=== PATIENT | female | born 1955 | race Caucasian/White ===

== ENCOUNTER 2019-10-24 08:28 | Observation (INO) ==
--- NOTE | 2019-10-24 13:13 | History & Physical Bridge Note ---
Date of Service October 24, 2019 History & Physical Bridge Note I have examined the patient, reviewed the History & Physical and in the interval since the performance of the History & Physical I have noted the following changes of clinical significance: no changes noted
--- NOTE | 2019-10-24 13:13 | Pre Anesthesia Assessment ---
Date of Service October 24, 2019 Pre Sedation Assessment Vital Signs Temp Pulse Resp BP Pulse Ox 10/24/19 09:13 97.7 F 58 L 16 165/68 H 96 Cardiovascular RRR, no murmur, no edema Respiratory normal respiratory effort, lungs clear to auscultation Pre-Sedation Airway Assessment Smoking Status: Never smoker Hx Sleep Apnea: No Short, Thick Neck: No Thyromental Distance: > or= 3.5 Finger Breadths Oral Cavity: + WNL Mallampati Class: III ASA: ASA3 NPO Status Date of Last Intake of Fluids: 10/23/19 Time of Last Intake of Fluids: 19:30 Date of Last Intake of Solid Food: 10/23/19 Time of Last Intake of Solid Foods: 19:30 Procedure Planning Contraindications for Sedation: none Current Medications Reviewed: Yes Notes The planned sedation has been discussed with the patient. Informed Consent was obtained. I have identified the patient, determined the appropriateness of sedation and have assessed the patient immediately prior to the procedure. All medicine(s) and interventions are by my order.
[2019-10-24] MEDS ORDERED: NiCARDipine HCL INJ 2.5 MG/ML 10 ML AMP ONE (13:18)
[2019-10-24] MEDS ORDERED: HEPARIN (PORCINE) 1000 UNIT/ML 10 ML (CATH LAB USE ONLY) ONE (13:18)
[2019-10-24] MEDS ORDERED: MIDAZOLAM HCL 1 MG/ML 2ML VIAL ONE ×2 (13:19→14:32)
[2019-10-24] MEDS ORDERED: fentaNYL citrate 100 MCG/2 ML VIAL ONE ×3 (13:19→17:31)
[2019-10-24] MEDS ORDERED: NITROGLYCERIN/D5W 100MCG/ML 20ML SYR ONE (13:20)
[2019-10-24] MEDS ORDERED: CLOPIDOGREL BISULFATE 300 MG TAB ONE (15:09)
--- NOTE | 2019-10-24 15:25 | Post Anesthesia Assessment ---
Date of Service October 24, 2019 Post Sedation Assessment Vital Signs Temp Pulse Resp BP Pulse Ox 10/24/19 09:13 97.7 F 58 L 16 165/68 H 96 Recovery Score Activity: Moves 4 extremities Respiration: Deep Breath/Cough Circulation: +/-20% PreAnes Value Consciousness: Fully Awake Oxygen Saturation: O2 needed for >90% Discharge Sedation Level of Care: Fast Track Phase II Post Sedation Plan On clinical assessment, the patient appears to have tolerated the sedation without complications. Patient is recovering as anticipated. Patient will continue to be monitored by nursing and may be discharged when sedation discharge criteria are met per below protocol. Upon Completions of procedure up to 15 minutes continue every 5 minute vital signs and the P.A.R. score; then discharge to a Phase I or Fast Track to Phase I I per the following guidelines: * Discharge Patient to appropriate Phase II area if PAR is 8 or greater or return to pre- procedure baseline. The post - procedure orders will be as directed. * If PAR score is less than 8 or not return to pre-procedure baseline then patient will follow Phase I monitoring till PAR is reached for Phase II. The Phase I may be done in procedure room or may call to secure a Phase I area. * If naloxone or flumazenil are used for reversal, hold in Phase I for continued monitoring from when last reversal dose was given for a minimum of 60 minutes or longer pending the nurse and/or physician discretion of patient condition before discharge to Phase II. Please call the Sedation Physician to re-evaluate and complete post-note for discharge to Phase II area. Do NOT discharge from procedure sedation or Phase 1 until post- sedation evaluation note is complete by procedure /sedation MD Sedation Discharge Instructions to be given to the patient at discharge to home.
[2019-10-24] MEDS ORDERED: ACETAMINOPHEN 325 MG TAB PO PRN (15:44)
[2019-10-24] MEDS ORDERED: ONDANSETRON INJ 2 MG/ML 2 ML VIAL IV PRN (15:44)
[2019-10-24] MEDS ORDERED: NITROGLYCERIN SL 0.4 MG/TAB TAB SL PRN (15:44)
--- NOTE | 2019-10-24 15:53 | Cardiac Catheterization ---
[facility] Data: Fitter / Welder Cardiac Status Clinical evaluation leading to the procedure CAD Presenation: Unstable angina Anginal Classification: CCS III Heart Failure: No Cardiogenic Shock within 24 Hours: No Cardiac Arrest within 24 Hours: No Imaging Studies Past 6 Months: Yes Stress Studies Past 6 Months: No Diagnostic Physicians Name: Jakob Keane MD Status: Elective Closure Device Percutaneous Entry Location: Radial Closure Device: Radial Band Recommendations: PCI without planned CABG PCI Indication: Angina despite med therapy and Unstable Angina Lesion Segment Name: mid RCA Culprit Artery: Yes Stenosis Prior to Rx (%): 95 Chronic Total Occlusion: No IVUS: No FFR: No Pre-Procedure PRIYA Flow: 3 Previously Treated Lesion: No Lesion Complexity: Non-High/Non-C Lesion Length (mm): 20 Thrombus Present: No Bifurcation Lesion: No Guidewire Across Lesion: Stenosis Post-Procedure (%): 0 Post-Procedure PRIYA Flow: 3 Devices(s) Deployed: Yes Yes Intraprocedure Events Significant Disection: No Perforation: No Cardiac Cath Procedure Full Procedure Date October 24, 2019 Pre-Procedure Diagnosis Pre-Procedure Diagnosis: Angina AUC Score AUC Score: 7 Post-Procedure Diagnosis Post-Procedure Diagnosis: Severe CAD, Successful PCI and Normal Intracardiac Pressures Procedure(s) Performed Procedure(s) Performed: Coronary Angiography, Left Heart Cath, Drug Eluting Stent, Ultrasound Guided Vascular Access and Aortography Senior Product Designer Jakob Keane MD Layboy Operator(s) Luiz Estimated Blood Loss Estimated Blood Loss: 10 Medication(s) Medication(s): Clopidogrel, Fentanyl, Heparin, Lidocaine 1%, Nicardipine, Nitroglycerin and Versed Summary of Findings Indication: Accelerating angina Access: 6Fr right radial artery under ultrasound guidance Catheters: Miles, JR4 guide, pigtail Findings: LM - 20% ostial stenosis LAD - Medium caliber vessel with proximal to mid luminal irregularities. Distal vessel tapers to apex. Medium caliber 1st diagonal without significant disease. Circumflex - Medium caliber vessel, 20-30% mid segment disease. RCA - Dominant, large caliber, mild diffuse mid segment disease before 95% stenosis at take off of acute marginal. Distal luminal irregularities. LVEDP - 16 Ascending aortography - Normal aortic root size. 2+ aortic regurgitation. -- PCI -- Antithrombotic therapy: Heparin, Clopidogrel Procedure: RCA cannulated with JR4 guide Head Of Human Resources 50 wire passed across lesion into distal vessel Mid RCA lesion predilated with 2.5 compliant balloon Dilated lesion stented with 3.0 x 26 Derian THOMAS Stent post-dilated with 3.5 noncompliant balloon IC vasodilators administered for spasm Post procedure PRIYA 3 flow, stent well expanded with minimal residual stenosis and no apparent cardiac complications. Arterial Closure: TR Band Summary: 1. Severe single vessel coronary artery disease - 95% mid RCA stenosis 2. Normal intracardiac filling pressure 3. Normal ascending aorta/aortic root with mild to moderate aortic regurgitation (2+). 4. Successful PCI of mid RCA with single drug-eluting stent (3.0 x 26 mm Derian; post-dilated with 3.5 NC). Recommendations: To PCU for continued monitoring Loaded with Clopidogrel 600mg in chemical laboratory scientist Continue dual-antiplatelet therapy for at least 6 months Continue statin, and ASCVD risk factor modification Consult cardiac Rehab Hemodynamics Rest Ao:: 158/61/100 Final Ao: 189/68/117 LV: 159/16 Recommendations Recommendations: PCI without planned CABG Specimens Specimens: None Radiation Exposure (mGy) 940 Contrast (mls) 135 Fluids (cc crystalloids) Fluids (cc crystalloids): 135 Drains Drains: none Anesthesia moderate Procedural Complication(s) None Disposition PCU I attest to the content of the Intraoperative Record and any orders documented therein. Any exceptions are noted below. [facility] Card Cath Procedure Codes Cardiac Catheterization Procedure 1: Cardiovascular Cath Procedures: 48491 Coronaries and LHC (+/-LV) Therapeutic Services & Ancillary Proc Procedure 1: Cardiovascular Tx and Anc Procedures: 86167 Ultrasonic Guidance Vascular Access Moderate Sedation Procedure 1: Sedation/Anesthesia: 18774 Mod Sedation by the same physician;Init15 Min Child Age 5 & Up Procedure 2: Sedation/Anesthesia: 37551 Mod Sedation by the same physician; Ea [id number] Minutes Stenting Procedure 1: Cardiovascular Stent Procedures: 97357 Perc transcatheter placement of intracoronary stent(s), with ang PG Care Time/CCT Total # of Minutes Spent Total Time Spent with Patient: Total time spent is greater than 50% in coordination of care (as documented) at patient's floor/unit and/or counseling patient:
[2019-10-24] MEDS: SODIUM CHLORIDE 0.9% 1000ML 1,000 ML IV SCH ×2 (17:17→23:24)
[2019-10-24] MEDS ORDERED: fentaNYL citrate 100 MCG/2 ML VIAL IV ONE (17:29)
[2019-10-24] MEDS: TRAMADOL HCL 50 MG TABLET PO PRN ×2 (18:36→23:23)
[2019-10-24] MEDS ORDERED: INFLUENZA Vaccine HIGH DOSE 65+yrs 0.5 mL Syr IM ONE (19:45)
[2019-10-25 05:53] LABS: Basophils # (auto) 0.02 K/uL (0-0.2); Basophils % (auto) 0.4 %; Eosinophils # (auto) 0.08 K/uL (0-0.5); Eosinophils % (auto) 1.6 %; Hematocrit (blood only) 32.6 % (37-47); Immature Granulocytes # (auto) 0.01 K/uL (0.00-0.02); Immature Granulocytes % (auto) 0.2 %; Lymphocytes # (auto) 1.08 K/uL (1.2-3.4); Lymphocytes % (auto) 21.1 %; Mean Corpuscular Hemoglobin 31.2 pg (25-34); Mean Corpuscular Hgb Conc 33.7 g/dL (32-36); Mean Corpuscular Volume 92.4 fL (80-100); Mean Platelet Volume 10.3 fL (7.4-10.4); Monocytes % (auto) 9.8 %; Neutrophils # (auto) 3.43 K/uL (1.4-6.5); Neutrophils % (auto) 66.9 %; Platelet Count 177 K/uL (130-400); RDW Coefficient of Variation 13.7 % (11.5-14.5); Red Blood Count 3.53 M/uL (4.2-5.4); White Blood Count 5.12 K/uL (4.8-10.8)
[2019-10-25 06:30] LABS: BUN Creatinine Ratio 20.1 (10-20); Calcium 8.2 mg/dl (8.5-10.1); Creatinine Clr Calc Pharmacy 77.3 ml/min; Est GFR (African American) 106.4; Est GFR (Non-African American) 91.8; Potassium 3.7 mmol/L (3.5-5.1)
[2019-10-25] MEDS ORDERED: LEVOTHYROXINE SODIUM 50 MCG TABLET PO SCH (06:30)
[2019-10-25] MEDS ORDERED: ASPIRIN 81 MG ECTAB PO SCH (09:00)
[2019-10-25] MEDS ORDERED: ATORVASTATIN 40 MG TAB PO SCH (09:00)
[2019-10-25] MEDS ORDERED: hydroCHLOROthiazide 25 MG TAB PO SCH (09:00)
[2019-10-25] MEDS ORDERED: CLOPIDOGREL BISULFATE 75 MG TAB PO SCH (09:00)
[2019-10-25] MEDS ORDERED: ENOXAPARIN INJ 40 MG/0.4 ML SYR SQ SCH (10:00)
--- NOTE | 2019-10-25 20:18 | Electrocardiogram Report ---
Test Reason : Blood Pressure : / mmHG Vent. Rate : 057 BPM Atrial Rate : 057 BPM P-R Int : 192 ms QRS Dur : 078 ms QT Int : 404 ms P-R-T Axes : -10 061 065 degrees QTc Int : 393 ms Sinus bradycardia Otherwise normal ECG When compared with ECG of 19-MAR-2014 17:48, No significant change was found Confirmed by Cristopher Vega ([id number]) on 10/25/2019 8:18:18 PM Referred By: Ap Keane Confirmed By:Cristopher Vega
--- NOTE | 2019-10-30 00:03 | Discharge Summary ---
Date of Service October 30, 2019 Admission HPI Per Admitting Provider Mrs. Soria is a very pleasant 64-year-old woman ([employer]'s [id number]) with a history of hypertension, hypothyroidism and breast cancer status post chemotherapy/radiation and lumpectomy in 2014 here today as a new patient in the setting of progressive chest/neck pain. Patient reports exertional neck pain beginning as far back as a year and a half ago. Symptoms reported to Dr. Nicholas and underwent exercise stress echo back in November 2018. Exercise 4: 53 min, achieving 72% MPHR. Exercise stopped due to jaw pain. Resting images showed normal LV size and function. Reported to have mild aortic insufficiency. Since that time symptoms have continued to progress. Has been evaluated further by a automotive general manager and was diagnosed with erosive arthritis and started on methotrexate which per patient did not help and was discontinued. Also seen by chiropractor without significant relief. Had follow-up with her oncologist at [facility] and underwent repeat chest CT in September which showed no evidence of cancer recurrence. Did have a thyroid nodule. Aorta not commented on. She states today that she just wants to be able to walk again. States that she was previously very active but now has limiting chest/neck pain just walking short distances, less than a block. Episodes resolve with 3 to 4 minutes of rest. Reports occasional episodes of chest discomfort now occurring at rest over the last week or 2. These seem to happen during periods of increased stress. Has also noted intermittent dizziness which he describes kind of as a ringing in her ear/unsteadiness. This can occur at any time, intermittently with walking. Specialty Data Cardiology Cardiac cath/PCI: 1. Severe single vessel coronary artery disease - 95% mid RCA stenosis 2. Normal intracardiac filling pressure 3. Normal ascending aorta/aortic root with mild to moderate aortic regurgitation (2+). 4. Successful PCI of mid RCA with single drug-eluting stent (3.0 x 26 mm [place]; post-dilated with 3.5 NC). Discharge Data Consultations 10/24/19 15:47 Consult Cardiac Rehabilitation Routine Procedures Performed Operation Date: 10/24/19 09:30 Actual Procedures p Cath, Left with Cors and Vent - Ap Keane MD s Cineradiography w/Routine Exam - Ap Keane MD s Drug Eluting Stent SGl Vessel - Ap Keane MD s Ultrasound Vascular Access - Ap Keane MD s Aortogram, Thoracic - Ap Keane MD s Injection / Imaging Aorta - Ap Keane MD Hospital Course (1) CAD (coronary artery disease): Underwent cardiac catheterization via right radial artery. Found to have severe focal mid RCA disease treated with a single drug-eluting stent. Post procedure developed a RT forearm hematoma that required extended compression with blood pressure cough. On hospital day 2 post-procedure labs were stable. Electrically stable on telemetry. Intermittent nausea/vomiting persisted overnight. Later in afternoon nausea improved and was able to walk in mack without symptoms. Discharged to home on DAPT with aspirin, clopidogrel. Follow-up with cardiology in 2 weeks. Discharge Instructions Medications levothyroxine 50 mcg tablet 50 mcg PO DAILY #90 tab 05/24/19 [Rx Confirmed 10/24/19] hydrochlorothiazide 12.5 mg tablet 12.5 mg PO DAILY #90 tab 07/23/19 [Rx Confirmed 10/24/19] aspirin 81 mg tablet,delayed release 81 mg PO DAILY #30 tab 10/23/19 [Rx Confirmed 10/24/19] lisinopril 2.5 mg tablet 2.5 mg PO DAILY 10/23/19 [History Confirmed 10/24/19] acetaminophen [Mapap (acetaminophen)] 650 mg PO Q6H PRN 30 Days #30 tab 10/25/19 [Rx] clopidogrel 75 mg PO QAM #30 tab 10/25/19 [Rx] nitroglycerin [Nitrostat] 0.4 mg SUBLINGUAL PRN PRN 30 Days #30 tab 10/25/19 [Rx] rosuvastatin [Crestor] 20 mg PO DAILY #30 tab 10/25/19 [Rx]
== END 2019-10-25 15:34 | disposition home or self-care (01) ==
LOC: CC 08:28 → 2S 08:28
PROC: CLB.IPA (2019-10-24 09:30)
PROC: CLB.ATH (2019-10-24 09:30)

== ENCOUNTER 2023-08-22 09:16 | Observation (INO) ==
--- NOTE | 2023-08-09 09:54 | PAT Medication Instructions ---
Medication Instructions Date of Service August 09, 2023 Home Medications [id number] 5 mg-zeaxanth 1 mg-bilberry 7.5 mg-herbal capsule (Macular Health Formula) 1 cap PO QAM leflunomide 20 mg tablet 20 mg PO QAM meloxicam 15 mg tablet 15 mg PO QDL aspirin 81 mg tablet,delayed release 81 mg PO QAM hydrochlorothiazide 25 mg tablet 25 mg PO QAM levothyroxine 75 mcg tablet 75 mcg PO QAM olopatadine 0.6 % nasal spray (Patanase) 2 spray intranasal BID PRN Nasal Congestion pantoprazole 40 mg tablet,delayed release 40 mg PO QAM rosuvastatin 20 mg tablet (Crestor) 20 mg PO QPM MEDICATION INSTRUCTIONS: Continue as directed olopatadine 0.6 % nasal spray (Patanase) 2 spray intranasal BID PRN Nasal Congestion ASK your surgeon for instructions meloxicam 15 mg tablet 15 mg PO QDL ASK your prescriber and surgeon aspirin 81 mg tablet,delayed release 81 mg PO QAM STOP taking 2 weeks before surgery ugxuvjip-mhy-chyaqz 5 mg-zeaxanth 1 mg-bilberry 7.5 mg-herbal capsule (Macular Health Formula) 1 cap PO QAM DO NOT take the morning of surgery hydrochlorothiazide 25 mg tablet 25 mg PO QAM Take morning of surgery With a small sip of water, OTHERWISE NOTHING TO EAT OR DRINK AFTER MIDNIGHT: levothyroxine 75 mcg tablet 75 mcg PO QAM pantoprazole 40 mg tablet,delayed release 40 mg PO QAM Take evening before surgery rosuvastatin 20 mg tablet (Crestor) 20 mg PO QPM Other Notes CHECK WITH PRESCRIBER FOR INSTRUCTIONS: leflunomide 20 mg tablet 20 mg PO QAM If you have any questions please call us at [phone] or [phone] or [phone] or [phone]
--- NOTE | 2023-08-11 09:06 | Anesthesiology Consultation ---
Date of Service August 11, 2023 Assessment & Plan (1) Encounter for pre-operative examination: - Infectious disease screening: Per assessment on 08/11/23: No known infectious disease contacts or current infectious disease symptoms. No noted Covid positive test result in past 90 days. - Outpatient joint assessment: Pt currently scheduled for inpatient pathway. If surgeon requests review for outpatient joint pathway, patient is not recommended candidate for outpatient joint program from anesthesia standpoint based on available information. - Cardiology visit (11/16/22 [facility]): "Post PCI with THOMAS to mid RCA 10/2019.. Mild to moderate aortic insufficiency.. Hypertension.. Stable from a cardiac standpoint. Active with no recurrent anginal symptoms. On exam today no signs of heart failure or new PVD. Blood pressure well controlled. LDL excellent on statin. Can try CoQ10 for joint symptoms. No change to current antihypertensives. Repeat surveillance echocardiogram for aortic regurgitation next year. Follow-up in 1 year." - RUE limb restriction: Patient states was told okay to use RUE if needed though* Chart Review Chart Review: Acceptable Risk for Surgery and Patient seen in Pre Admission Testing Teaching & Discussion Pre-Anesthesia Teaching/Discussion Notes: Instructed NPO after midnight before surgery,except medications with 15 cc of water. Medication instructions provided according to the PAT guidelines. History Surgery Operation Date: 08/22/23 12:35 Proposed Procedures p Right Total Knee Arthroplasty - Cyrus Manzano, Height/Weight Height: 5 ft 2 in Weight: 67.4 kg Allergies Allergy/AdvReac Type Severity Reaction Status Date / Time Sulfa (Sulfonamide Allergy Intermediate Diffuse Verified 08/09/23 12:39 Antibiotics) redness, Feeling "hot all over" Tetracyclines Allergy Mild Rash for Verified 08/09/23 12:39 3+ days Medications Home Medications Medication Instructions Recorded Confirmed Last Taken rymahesj-mjm-hijdxh 5 mg-zeaxanth 1 cap PO QAM 05/09/20 08/09/23 05/22/23 1 mg-bilberry 7.5 mg-herbal capsule (Macular Health Formula) leflunomide 20 mg tablet 20 mg PO QAM 01/29/21 08/09/23 05/22/23 meloxicam 15 mg tablet 15 mg PO QDL 05/12/23 08/09/23 05/22/23 aspirin 81 mg tablet,delayed 81 mg PO QAM 08/09/23 08/09/23 Unknown release hydrochlorothiazide 25 mg tablet 25 mg PO QAM 08/09/23 08/09/23 Unknown levothyroxine 75 mcg tablet 75 mcg PO QAM 08/09/23 08/09/23 Unknown olopatadine 0.6 % nasal spray 2 spray intranasal BID PRN Nasal 08/09/23 08/09/23 Unknown (Patanase) Congestion pantoprazole 40 mg tablet,delayed 40 mg PO QAM 08/09/23 08/09/23 Unknown release rosuvastatin 20 mg tablet (Crestor) 20 mg PO QPM 08/09/23 08/09/23 Unknown Past Medical History Medical History Allergic rhinitis due to allergen Aortic regurgitation Echo 10/2019: Mild to moderate AR CAD (coronary artery disease) THOMAS x1 in RCA (2019) Erosive (osteo)arthritis History of breast cancer diagnosed 2015 - s/p lumpectomy, XRT, chemotherapy History of COVID-19 06/2022- mild symptoms, resolved Hx of basal cell carcinoma Nose Hypertension Hypothyroidism LPRD (laryngopharyngeal reflux disease) Macular degeneration Left eye Right thyroid nodule Schatzki's ring Exercise / Class Metabolic Activity II 4-5 Yardwork/Stairs/Walk up hill Past Family History Family History Father Diabetes Cardiac disorder Myocardial infarction Hypertension Family history of diabetes mellitus Sister Diabetes Cardiac disorder Hypertension Family history of diabetes mellitus Mother Myocardial infarction Other No family history of adverse response to anesthesia Denies family history of Ovarian cancer Prostate cancer Breast cancer Colorectal cancer Past Surgical History Surgical History History of appendectomy History of bladder surgery R/t stress incontinence History of bunionectomy R/L History of colonoscopy History of esophagogastroduodenoscopy (EGD) History of heart artery stent Stent x1 (2019) History of lumpectomy Right; lymph nodes removed History of Mohs micrographic surgery for skin cancer Face History of tubal ligation Hx of tooth extraction Past Anesthesia History No Hx of Anesthesia Complications and No Family Hx of Anesthesia Complications History of PONV No Hx of PONV and Hx of Motion Sickness (Occasional) Social History Smoking Status: Never smoker Do You Dip or Chew Tobacco: No Hx Alcohol Use: No Hx Substance Use: No substance use type: does not use Review of Systems Patient denies chest pain, shortness of breath, dyspnea on exertion, fever, chills, cough, wheezing, palpitations. Physical Exam Vital Signs VITALS BP 115/71 P 70 TEMP 98.7 SP02 97%RA RESP 16 PHYSICAL Full cervical extension range of motion. Full TMJ range of motion. TMD 3.5 finger breaths Mallampati Score 3 Dentition: intact, + several crowns (including upper front), bridge Lungs: clear throughout to auscultation Cardiac: regular rate and rhythm, no murmurs noted Spine: normal Carotid arteries: negative bruit Extremities: no LE edema Lab Results Anesthesia Preop Results Results Anesthesia Widget: WBC 5.40 K/ul (4.8-10.8) 08/11/23 Hgb 12.0 g/dl (12.0-16.0) 08/11/23 Hct 36.1 % (37.0-47.0) L 08/11/23 Plt 179 K/uL (130-400) 08/11/23 Na 140 mmol/L (136-145) 08/11/23 K 4.0 mmol/L (3.5-5.1) 08/11/23 Cl 106 mmol/L (98-107) 08/11/23 CO2 28 mmol/L (21-32) 08/11/23 BUN 21 mg/dl (6-23) 08/11/23 Creat 0.69 mg/dl (0.6-1.2) 08/11/23 Glucose Level 93 mg/dl (70-99(Fasting)) 08/11/23 PT 10.7 Seconds (9.0-12.0) 08/11/23 PTT 25.4 Seconds (21.0-31.0) 08/11/23 INR 1.0 (0.9-1.1) 08/11/23 Blood Type O Positive 08/11/23 Antibody Screen NEGATIVE 08/11/23 Testing Electrocardiogram Date: 08/11/23 NSR at 66bpm. "Normal ECG" Chest X-Ray Date: 08/11/23 FINDINGS: Cardiomediastinal and hilar silhouettes are within normal limits. Mild hyperinflation with diaphragmatic flattening. Surgical clips project over the right breast. No pneumothorax, pleural effusion, airspace consolidation or pulmonary edema. Partially imaged scoliotic curvature of the lumbar spine. Bones appear grossly intact. IMPRESSION: No acute process of the chest. Echocardiogram Date: 10/23/19 LVEF 60-65%. No RWMA. Mild to moderate AR. Normal estimated CVP. No significant change compared to 12/07/2018 per report. Cardiac Catheterization Date: 10/24/19 Summary: Severe single vessel coronary artery disease. 95% mid RCA stenosis. Normal intracardiac filling pressure. Normal ascending aorta/aortic root with mild to moderate aortic regurgitation (2+). Successful PCI of mid RCA with single drug-eluting stent (3.0 x 26 mm Derian; post-dilated with 3.5 NC). Recommendations: To PCU for continued monitoring. Loaded with Clopidogrel 600mg in cardiac cath lab manager. Continue dual-antiplatelet therapy for at least 6 months. Continue statin, and ASCVD risk factor modification. Consult cardiac Rehab.
[~2023-08-22 09:16] MED LIST: ACETAMINOPHEN 500 MG TAB PO SCH; BUPIVACAINE 0.25% PF 30 ML VIAL ONE; BUPIVACAINE 0.5 % 5 MG/1 ML PF 10ML VIAL ONE; DEXAMETHASONE SOD INJ 4 MG/ML VIAL ONE; EPINEPHrine INJ 1 MG/ML AMP ONE; FAMOTIDINE 20 MG TAB PO SCH; GABAPENTIN 300 MG CAP PO SCH; LR 500ML BOLUS, THEN 15ML/HR IV SCH; LR 60ML/HR IV SCH; ORTHO JOINT MIX INFIL SCH; TRANEXAMIC ACID 1,000 MG **IV Intra-op IV SCH; TRANEXAMIC ACID 1,000 MG **IV Pre-op IV SCH; ceFAZolin 2000MG 2,000 MG/15 ML SYR IV SCH; dexAMETHasone 4 MG TAB PO SCH
[2023-08-22] MEDS ORDERED: fentaNYL citrate PF 100 MCG/2 ML VIAL ONE (09:41)
[2023-08-22] MEDS ORDERED: MIDAZOLAM HCL 1 MG/ML 2ML VIAL ONE (09:41)
--- NOTE | 2023-08-22 10:39 | History & Physical Bridge Note ---
Date of Service August 22, 2023 History & Physical Bridge Note I have examined the patient, reviewed the History & Physical and in the interval since the performance of the History & Physical I have noted the following changes of clinical significance: no changes noted
[2023-08-22] MEDS ORDERED: ORTHO JOINT ANESTHETIC ONE (10:59)
[2023-08-22] MEDS ORDERED: PROPOFOL IV EMULSION 10 MG/ML 20 ML VIAL IV ONE (11:01)
[2023-08-22] MEDS ORDERED: LIDOCAINE 2% 2 ML VIAL/AMP(20MG/ML) INFIL ONE ×2 (11:01→11:46)
[2023-08-22] MEDS ORDERED: ATROPINE SULFATE 0.1 MG/ML 10ML SYR IV PRN (11:16)
[2023-08-22] MEDS ORDERED: PROMETHAZINE HCL 6.25 MG in SODIUM CHLORIDE 0.9% 50 ML IV PRN (11:16)
[2023-08-22] MEDS ORDERED: ONDANSETRON INJ 2 MG/ML 2 ML VIAL IV PRN ×2 (11:16→15:37)
[2023-08-22] MEDS ORDERED: fentaNYL citrate PF 100 MCG/2 ML VIAL IV PRN (11:16)
[2023-08-22] MEDS ORDERED: ePHEDrine sulfate 50 MG/ML AMP IV PRN (11:16)
--- NOTE | 2023-08-22 12:46 | Operative Report ---
PG Post Operative Report Pre & Post Diagnosis Operation Date: 08/22/23 10:55 Pre-Op Diagnosis: Degenerative Joint Disease Right Knee Post-Op Diagnosis: Degenerative Joint Disease Right Knee I identified the patient and participated in the time-out.: Yes Procedure Operation Date: 08/22/23 10:55 Actual Procedures p Right Total Knee Arthroplasty(Right) - Cyrus Manzano DO Surgeon Cyrus Manzano DO Resaw Machine Operator Cyrus Jc PA-C Estimated Blood Loss 30 Findings Consistent with Post-Op Diagnosis Specimens Right femoral tibial bone Description of Procedure Implants used: I used a Alden Persona total knee arthroplasty system with a size 6 CR narrow femur, C tibia, 31 oval patella, and a size 12 medial congruent polyethylene bearing. All components were cemented in place with Biomet cement. Anitra arrived [facility] for the above procedure. She was seen in the preoperative holding area and the operative extremity was identified and signed. She was given a preoperative antibiotic, TXA, a spinal anesthetic and an adductor nerve block. She was taken back to the operating room and laid on the table in supine position. She was given basic sedation. The operative knee was then prepped and draped in sterile fashion. A timeout was done, and the patient and the operative extremity was properly identified. A midline incision was made directly over the patella. Dissection was taken down to the extensor mechanism. A midvastus arthrotomy was used. The medial retinaculum was released and the fat pad was mostly excised. The knee was flexed and the ACL, PCL, and meniscus were removed. A drill was sent down the center of the femoral canal followed by an intramedullary eleazar. Off that eleazar a distal femoral cutting block was placed. 9 mm was resected off the distal femur at 5 of valgus. A posterior referencing AP sizing guide was then placed on the distal femur. The femur measured to be a size 6. 2 drill holes were placed in 3 of external rotation. A 4-in-1 cutting block was then impacted into place. Anterior, posterior, and chamfer cuts were then made. The proximal tibia was then exposed. An external tibial alignment guide was placed. A tibial cut guide was then anchored in place and the proximal tibia was then resected. The posterior aspect of the knee was then opened up and any additional meniscus fragments and osteophytes were removed. The tibia measured to be a size C. The tibial plate was then placed in the appropriate rotation and the tibia was drilled and punched. Trial components were then placed. I used a size 12 medial congruent polyethylene insert. The knee was brought through a full range of motion and felt to be stable. The peg holes for the femoral component were then drilled. The patella was then everted and 9 mm was resected off the posterior aspect of the patella. The patella measured to be a size 31 oval. 3 peg holes were then drilled. A trial patella was placed. The knee was once again brought through a full range of motion and felt to be stable. Trial components were then removed. The surrounding soft tissues were injected with 100 cc of an orthopedic pain control cocktail. All components were then cemented into place with Biomet cement. The final polyethylene insert was then snapped into place. Once cement was dry the tourniquet was deflated. Hemostasis was obtained. A dilute betadyne lavage was then done for 3 minutes. The joint was then irrigated with normal saline solution. The midvastus arthro alta was then closed with #1 Vicryl suture. The skin was closed with 2-0 Vicryl, 3-0V lock suture, and juan. A soft compressive dressing was placed. She was then transferred to a hospital bed and taken to the postanesthesia care unit in stable condition. She tolerated the procedure well. Cyrus Jc PA-C, was present for the entire procedure. He was critical for patient positioning, prepping, draping, retraction exposure, wound closure and application of sterile dressing. I attest to the content of the Intraoperative Record and any orders documented therein. Any exceptions are noted below.
--- NOTE | 2023-08-22 13:23 | XRay Report ---
TWO VIEWS RIGHT KNEE CLINICAL HISTORY: Postoperative examination. FINDINGS: AP and crosstable lateral portable views of the right knee are obtained. A right knee arthr oplasty is in near anatomic alignment. There has been undersurface remodeling of the patella. No acut e fracture is seen. There are expected postoperative changes around the knee including skin clips, so ft tissue edema, and subcutaneous gas. IMPRESSION: Expected postoperative changes status post right knee arthroplasty. No acute fracture is seen. ACT 112: Negative or not required by law. Electronically signed by: Sam Saldaña M.D. 08/22/2023 1:21 PM
--- NOTE | 2023-08-22 14:28 | Anesthesiology Progress Note ---
Date of Service August 22, 2023 Anesthesia Post Procedure Vital Signs Vital Signs: Temp Pulse Pulse Resp BP Pulse Ox O2 Del Method 08/22/23 14:15 36.3 C L 50 L 17 136/50 L 98 Room Air 08/22/23 14:05 50 L 15 136/72 97 Room Air 08/22/23 13:55 50 L 17 130/51 L 97 Room Air 08/22/23 13:45 52 L 13 136/55 L 100 Room Air 08/22/23 13:35 51 L 12 139/54 L 98 Room Air 08/22/23 13:25 53 L 13 127/52 L 97 Room Air 08/22/23 13:15 55 L 12 117/55 L 100 Oxymask 08/22/23 13:06 36.0 C L 54 L 14 116/55 L 97 Oxymask 08/22/23 09:47 36.6 C 72 18 180/73 H 97 Room Air O2 Flow Rate 08/22/23 14:15 08/22/23 14:05 08/22/23 13:55 08/22/23 13:45 08/22/23 13:35 08/22/23 13:25 08/22/23 13:15 4 08/22/23 13:06 6 08/22/23 09:47 Transfer of Care Handoff Completed per policy Notes Mental Status: alert / awake / arousable Patient Amnestic to Procedure: Yes Nausea / Vomiting: adequately controlled Pain: adequately controlled Airway Patency, RR, SpO2: stable & adequate BP & HR: stable & adequate Hydration State: stable & adequate Neuraxial Anesthesia: was administered and sensory block is resolving Anesthetic Complications: no major complications apparent and Pt Satisfied with anesthetic care
[2023-08-22] MEDS ORDERED: METOCLOPRAMIDE HCL INJ 5 MG/ML 2 ML VIAL IV PRN (15:37)
[2023-08-22] MEDS ORDERED: NALOXONE HCL 0.4 MG/1 ML VIAL/CARP IV PRN (15:37)
[2023-08-22] MEDS ORDERED: HYDROmorphone INJ 0.5 MG/0.5 ML SYR IV PRN (15:37)
[2023-08-22] MEDS ORDERED: bisacodyL 10 MG SUPP PR PRN (15:37)
[2023-08-22] MEDS ORDERED: MAGNESIUM HYDROXIDE SUSP 30 ML UDC PO PRN (15:37)
[2023-08-22] MEDS ORDERED: SODIUM CHLORIDE 0.9% 1,000 ML IV SCH (15:37)
[2023-08-22] MEDS ORDERED: INFLUENZA VACCINE HIGH-DOSE (HD-IIV4) PF 65+ 0.7mL SYR IM ONE (16:09)
[2023-08-22] MEDS: KETOROLAC TROMETHAMINE 15 MG/ML VIAL IV SCH ×2 (16:14→21:56)
[2023-08-22] MEDS: ACETAMINOPHEN 500 MG TAB PO SCH (18:26)
[2023-08-22] MEDS: oxyCODONE HCL IR 5 MG TAB (IMMEDIATE RELEASE) PO PRN (18:26)
[2023-08-22] MEDS ORDERED: ROSUVASTATIN CALCIUM 20 MG TAB PO SCH (21:00)
[2023-08-22] MEDS ORDERED: SENNA 8.6 MG TAB PO SCH (21:00)
[2023-08-22] MEDS: ceFAZolin 2000MG 2,000 MG/15 ML SYR IV SCH (21:53)
[2023-08-22] MEDS: ASPIRIN 81 MG ECTAB PO SCH (21:54)
[2023-08-22] MEDS: DOCUSATE SODIUM 100 MG CAP PO SCH (21:55)
[2023-08-23] MEDS: ceFAZolin 2000MG 2,000 MG/15 ML SYR IV SCH (03:11)
[2023-08-23] MEDS: ACETAMINOPHEN 500 MG TAB PO SCH ×2 (03:11→09:49)
[2023-08-23] MEDS: KETOROLAC TROMETHAMINE 15 MG/ML VIAL IV SCH ×2 (03:12→09:49)
[2023-08-23] MEDS: oxyCODONE HCL IR 5 MG TAB (IMMEDIATE RELEASE) PO PRN (06:13)
[2023-08-23] MEDS ORDERED: LEVOTHYROXINE SODIUM 75 MCG TABLET PO SCH (06:30)
--- NOTE | 2023-08-23 06:52 | Discharge Summary ---
Date of Service August 23, 2023 Principal Diagnosis Same as "Discharge Diagnosis" noted below under Discharge Instructions. Discharge Exam On physical examination of the right knee, the dressing is clean and dry. Her leg is out full extension. She has active dorsiflexion plantarflexion of her right ankle.. Discharge Data Procedures Performed Operation Date: 08/22/23 10:55 Actual Procedures p Right Total Knee Arthroplasty(Right) - Cyrus Manzano DO Ordered Studies 08/22/23 05:00 US - OR guided needle placemen Routine Hospital Course (1) Status post right knee replacement: On August 22, 2023 Anitra arrived at [facility] and underwent knee replacement without complication. There was a spinal anesthetic. Postoperatively the patient was started on aspirin for DVT prophylaxis and transferred to the general orthopedic floors. The hospital course was uneventful. On postop day #1, the vital signs were stable and the pain was well controlled. They were able to participate well in with physical therapy doing ambulation and range of motion exercises. They were then discharged home. They will follow-up with orthopedics in 2 weeks. PG Care Time/CCT Total # of Minutes Spent Total Time Spent with Patient: Total time spent is greater than 50% in coordination of care (as documented) at patient's floor/unit and/or counseling patient: Discharge Plan Discharge Items Patient Disposition: Home - Home Health Services Reason For Visit: DJD Right Knee Discharge Diagnosis: Right knee replacement Activity: Per Instructions section Non-emergency contact: Surgeon Call non-emergency contact if: your wound has increased redness and your wound has increased drainage Follow-up/Referrals: Misty Nicholas MD [Primary Care Provider] - Diet: Regular Addtl Attending Provider Instructions: Activity and Therapy Recommendations: * If you are using [facility] then therapy will be provided at your home until they feel you have accomplished all of your goals. * If you are using [facility] then Physical Therapy will be provided until they feel you are ready to start Outpatient Physical Therapy. * If you are not using home therapy then Outpatient Physical Therapy should start about 3-5 days from your day of surgery. Therapy will last about 6-10 weeks * It is important not to put a pillow under your knee when you are relaxing or sleeping. It is just as important to make sure you are getting your knee perfectly straight as it is to regain your knee bend. * You were shown a series of exercises in the hospital. Do these exercises three times each day including the exercises you were shown in physical therapy. * Get up and walk several times each day. For the first four weeks, try not to stand or walk for more than one hour at a time. If you do stand or walk for more than one hour, you will not hurt anything, but your leg will likely swell. * As you feel comfortable, you may change from the walker or crutches to a cane and then to independent walking. Medications: * Narcotic You will likely be sent home from the hospital with a prescription for the narcotic pain medication that worked best throughout your stay. * Aspirin Most patients will be required to take Aspirin 81mg twice a day for 6 weeks after surgery. This is obtained [id number] and a prescription is not necessary. * Cefadroxil -take the antibiotic twice a day for 10 days to help prevent infections. * Other medications may be prescribed for specific circumstances. If you have any questions, please call the office at . * Resume previous home medications unless otherwise instructed TEDs/Elastic Stockings: The white elastic stockings help limit swelling and prevent blood clots from forming in your legs.~ The more you wear them, the more they work. Wear them for six weeks. Dressing Care: The dressing can be changed after physical therapy on postop day #1. Daily dry dressing changes for a few days, especially if the incision is still draining some. If the incision is not draining then you may leave the juan open to air. If there is a little bit of drainage or if the juan are getting stuck on your clothing then cover the incision with a dry dressing. The juan will be removed at your 2 week follow-up appointment. Showering: You may shower 5 days from the day of surgery as long as the incision is no longer draining. You may shower with the juan exposed. Let soapy water run over the juan and pat them dry. Do not scrub or soak the incision. Things To Watch For: * Drainage from the incision site that occurs more than one week after your surgery. * Increased redness at the incision site. * Fever above 102 degrees Fahrenheit. * Unusual chest pain or shortness of breath. * Call [facility] at with any of the above problems Follow-Up Visit: Follow-up with Dr. Manzano's PA (Cyrus Jc) 2-3 weeks after your day of surgery. He will remove your juan and answer any questions. If you have any additional questions or concerns, Dr Manzano is usually in the office at the same time and will be available An appointment was probably scheduled when you signed-up for surgery in the office. If you have any questions call Office Instructions: More detailed instructions as well as Frequently Asked Questions were provided in a folder by our office when you signed-up for surgery. Please review these instructions when you get home. If you have any further questions or concerns, please feel free to call the office at [phone] Pending Studies at Discharge: No Stand-Alone Forms: [facility] [employer] [facility], Smoking Cessation Medications and DC Order Prescriptions: New oxycodone 5 mg Tablet 5 mg PO Q4H PRN (Reason: pain) Qty: 30 0RF cefadroxil 500 mg capsule 500 mg PO BID 10 Days Qty: 20 0RF ondansetron 4 mg tablet,disintegrating 4 mg PO Q8H PRN (Reason: nausea and vomiting) Qty: 14 0RF Continued Macular Health Formula 5-1-7.5 mg capsule 1 cap PO QAM leflunomide 20 mg tablet 20 mg PO QAM Patient Comments: QAM meloxicam 15 mg tablet 15 mg PO QDL levothyroxine 75 mcg tablet 75 mcg PO QAM pantoprazole 40 mg tablet,delayed release (DR/EC) 40 mg PO QAM hydrochlorothiazide 25 mg tablet 25 mg PO QAM Patient Comments: QAM rosuvastatin [Crestor] 20 mg tablet 20 mg PO QPM Patient Comments: QPM olopatadine [Patanase] 0.6 % spray,non-aerosol 2 spray intranasal BID PRN (Reason: Nasal Congestion) Patient Comments: PT STATES NOT USING Rx Instructions: administer into each nostril Changed aspirin 81 mg tablet,delayed release (DR/EC) 81 mg PO BID 42 Days Qty: 0 0RF Patient Comments: QAM Admission Data Admit Date/Time: 08/22/23 13:07 Attending Provider: Cyrus Manzano Admit Provider: Cyrus Manzano Primary Care Provider: Misty Nicholas
--- NOTE | 2023-08-23 06:52 | Orthopedic Progress Note ---
Date of Service August 23, 2023 Assessment & Plan (1) Status post right knee replacement: Overall she is doing well. She is not having much pain in the right knee. She will be seen by physical therapy today for ambulation and range of motion exercises. The nursing staff can change her dressing after physical therapy. She is on aspirin for DVT prophylaxis. She can be discharged home later today. She will follow-up with orthopedics in 2 weeks. Randolph Ayoub was seen and examined at bedside this morning. Overall she is doing very well. She is not having much pain in the right knee. She she was up and ambulating to the bathroom. She is no complaints.. Review of Systems All systems reviewed & are unremarkable except as noted in HPI & below. Physical Exam On physical examination of the right knee, the dressing is clean and dry. Her leg is out full extension. She has active dorsiflexion plantarflexion of her right ankle.. Results & Data Results & Data Laboratory Results . Diagnostic Findings Postoperative x-rays of the right knee show the prosthesis to be in anatomic alignment without any evidence of fracture complication, or loosening.. PG Care Time/CCT Total # of Minutes Spent Total Time Spent with Patient: Total time spent is greater than 50% in coordination of care (as documented) at patient's floor/unit and/or counseling patient: Coding Level of Care Code 85879 Post Operative Follow-Up Diagnoses Status post right knee replacement Z96.651
[2023-08-23] MEDS ORDERED: dexAMETHasone 4 MG TAB PO SCH (08:00)
[2023-08-23] MEDS: ASPIRIN 81 MG ECTAB PO SCH (08:33)
[2023-08-23] MEDS: DOCUSATE SODIUM 100 MG CAP PO SCH (08:33)
[2023-08-23] MEDS ORDERED: LEFLUNOMIDE 10 MG TAB PO SCH (09:00)
[2023-08-23] MEDS ORDERED: hydroCHLOROthiazide 25 MG TAB PO SCH (09:00)
[2023-08-23] MEDS ORDERED: MULTIVITAMIN TAB PO SCH (09:00)
== END 2023-08-23 10:52 | disposition home health service (06) ==
LOC: 3E 09:16 → ASU 09:16